=== PATIENT | male | born 1965 | race Caucasian/White ===

== ENCOUNTER 2025-03-26 17:05 | Emergency (ER) | payer OTHER ==
[~2025-03-26] VITALS: Ht 180.3 cm; Wt 99.8 kg
[2025-03-26] MEDS: IBUPROFEN 400 MG TABLET PO ONE (17:30)
[2025-03-26] MEDS ORDERED: MECLIZINE HCL 25 MG TABLET ONE (17:41)
[2025-03-26] MEDS ORDERED: IBUPROFEN 400 MG TABLET ONE ×2 (17:42)
[2025-03-26] MEDS: MECLIZINE HCL 25 MG TABLET PO ONE (17:49)
[2025-03-26 18:04] LABS: CALCIUM, SERUM 9.4 mg/dL (8.5-10.1); CARBON DIOXIDE 27 mmol/L (21-32); CHLORIDE 103 mmol/L (98-107); CREATININE 1.1 mg/dL (0.6-1.3); GLUCOSE 274 mg/dL (74-106); SODIUM SERUM 136 mmol/L (136-145); UREA NITROGEN, BLOOD 14 mg/dL (7-18)
[2025-03-26 18:07] LABS: BASOPHILS % (AUTO) 0.5 % (0.0-2.0); EOSINOPHILS # (AUTO) 0.1 K/uL (0.0-0.7); EOSINOPHILS % (AUTO) 1.2 % (0.0-6.0); HEMATOCRIT 43 % (39-51); HEMOGLOBIN 15.2 g/dL (13.5-17.5); LYMPHOCYTES # (AUTO) 1.6 K/uL (0.8-4.8); LYMPHOCYTES % (AUTO) 20.3 % (20.0-44.0); MEAN CORPUSCULAR HEMOGLOBIN 31 PG (26.0-33.0); MEAN CORPUSCULAR HGB CONC 35 g/dl (31.0-36.0); MEAN CORPUSCULAR VOLUME 87 fL (80-96); MONOCYTES # (AUTO) 0.5 K/uL (0.1-1.30); NEUTROPHILS # (AUTO) 5.8 K/uL (1.8-8.9); PLATELET COUNT (AUTO) 182 K/uL (150-450); RED BLOOD CELL COUNT(AUTO) 4.96 MIL/uL (4.5-6.0); RED CELL DISTRIBUTION WIDTH 13.9 % (11.5-15.0); WHITE BLOOD COUNT (AUTO) 8.1 K/uL (4.3-11.0)
[2025-03-26 18:18] LABS: ALANINE AMINOTRANSFERASE 21 U/L (12-78); ALBUMIN 4.2 g/dL (3.4-5.0); ALKALINE PHOSPHATASE 64 U/L (46-116); ASPARTATE AMINOTRANSFERASE 11 U/L (15-37); BILIRUBIN,DIRECT 0.1 mg/dL (0.0-0.2); BILIRUBIN,TOTAL 0.6 mg/dL (0.2-1.0); NT-PRO BNP 89 pg/mL (0-125); TOTAL PROTEIN, SERUM 8.1 g/dL (6.4-8.2)
[2025-03-26] MEDS ORDERED: MECL-159 PO (18:28)
[2025-03-26 20:10] VITALS: BP 135/87; TEMP 98.3; O2SAT 98
== END 2025-03-26 20:11 | disposition home or self-care (01) ==
LOC: ER 17:15
DX: R42 Dizziness and giddiness (principal); M54.50 Low back pain, unspecified; E11.9 Type 2 diabetes mellitus without complications; I10 Essential (primary) hypertension
CPT/HCPCS: 99285; 71045; 93005; 72110; 85025; 80048; 80076; 36415; 84484; 83880; J8597